=== PATIENT | female | born 1990 | race African-American/Black ===

== ENCOUNTER 2021-05-09 21:16 | Emergency (ER) | payer BC ==
[~2021-05-09] VITALS: Ht 177.8 cm; Wt 68.0 kg
--- NOTE | 2021-05-09 21:33 | NUR ---
pt amb to room 5A. denies dizziness, sob or c/p. able to speak in complete sentences.
--- NOTE | 2021-05-09 21:35 | NUR ---
Dr. Nance at bedside for MSE.
[2021-05-09] MEDS ORDERED: CIPROFLOXACIN 0.3% OPHT DROP 2.5 ML BOTTLE OP ONE (21:45)
--- NOTE | 2021-05-09 22:01 | NUR ---
Patient discharged to home in stable condition. Written and verbal after care instructions given. Patient verbalizes understanding of instructions. Stressed follow up or return to ER for worsening s/s. Patient out of ER with steady gait, no acute signs of distress, VSS, all belongings taken.
[2021-05-09 22:02] VITALS: BP 138/98
[2021-05-09] MEDS ORDERED: CIPROFLOXACIN 0.3% OPHT DROP 2.5 ML BOTTLE ONE (22:03)
== END 2021-05-09 22:02 | disposition home or self-care (01) ==
LOC: ER 21:25
DX: H10.9 Unspecified conjunctivitis (principal)
CPT/HCPCS: A4663